=== PATIENT | female | born 2005 | race African-American/Black ===

== ENCOUNTER 2023-04-05 06:52 | Emergency (ER) | payer BC, MEDICAID ==
[~2023-04-05] VITALS: Ht 188 cm; Wt 113.0 kg
[2023-04-05 06:54] VITALS: O2SAT 98
[2023-04-05 07:21] VITALS: TEMP 100.4
[2023-04-05] MEDS ORDERED: SODIUM CHLORIDE 0.9% 1,000 ML IV ONE (08:45)
[2023-04-05] MEDS ORDERED: KETOROLAC 15MG/ML VIAL IV ONE (08:45)
[2023-04-05] MEDS ORDERED: DEXAMETHASONE 4MG/ML 1ML VIAL IV ONE (08:45)
[2023-04-05] MEDS ORDERED: CLINDAMYCIN 600MG PREMIX 50 ML IV SCH (09:00)
[2023-04-05] MEDS ORDERED: ACETAMINOPHEN 325MG TABLET PO ONE (09:15)
[2023-04-05] MEDS ORDERED: CLINDAMYCIN HCL 150MG CAPSULE PO ONE (10:15)
[2023-04-05] MEDS ORDERED: IBUP-2029 MT (10:53)
[2023-04-05] MEDS ORDERED: CLIN-194 MT (10:53)
[2023-04-05 11:17] VITALS: BP 132/77; PULSE 80; RESP 15
== END 2023-04-05 11:18 | disposition home or self-care (01) ==
LOC: ER 07:11
DX: J03.90 Acute tonsillitis, unspecified (principal)
CPT/HCPCS: 81025; 87430; 87070; 87077; 96361; 96374; 96375; 99284; J1100; J1885; J7030; Z7610 ×3